=== PATIENT | male | born 1970 | race Caucasian/White ===

== ENCOUNTER 2016-11-05 10:51 | Day surgery (SDC) | payer BC ==
--- NOTE | 2016-11-03 17:00 | HP ---
PROCEDURE DATE: 11/05/16 HISTORY OF PRESENT ILLNESS: The patient is a 46 y/o who had some swelling and pain intermittently with internal hemorrhoid as well as itching all the time and occasional rectal bleeding, but not every day and not every bowel movement. Had a colonoscopy a few years ago with no polyps. PAST MEDICAL HISTORY: Has had history of some chronic obstructive pulmonary disease and asthma. CURRENT MEDICATIONS: None on a regular basis. ALLERGIES: NKDA. PAST SURGICAL HISTORY: Had rhinoplasty. Had right wrist tendonitis surgery in the past. FAMILY HISTORY: Cancer and hypertension. Negative for colon cancer though. SOCIAL HISTORY: 1 pack per day smoker. Denies alcohol abuse. REVIEW OF SYSTEMS: 12 systems reviewed per admission assessment. No chest pain or palpitations. Other systems negative or noncontributory other than above and per admission assessment. PHYSICAL EXAMINATION: GENERAL: No acute distress. HEENT: Sclerae nonicteric. NECK: No JVD. CHEST: Equal excursion. Nonlabored breathing. CVS: Regular rate and rhythm. ABDOMEN: Soft, nontender. No peritoneal signs. EXTREMITIES: No significant edema. NEURO: Alert, moving extremities symmetrically. No gross motor deficits noted. IMPRESSION: HISTORY OF RECTAL BLEEDING WELL SOME INTERNAL/EXTERNAL HEMORRHOID ISSUES. FELT HE WOULD BENEFIT FROM COLONOSCOPY FOR FURTHER EVALUATION, POSSIBLE INTERNAL HEMORRHOID BANDING PENDING OPERATIVE FINDINGS. Shown the risk sheet. Explained the procedure in detail. Risks and benefits explained in detail, but not limited to, bleeding; infection; small risk of bowel injury or perforation possibly requiring open procedure; small risk of missed or nondiagnosis or incomplete exam possibly requiring barium enema or other studies or procedures; general risk of anesthesia or sedation regarding if his internal hemorrhoids are prominent enough to warrant banding, general risk of bleeding or infection; remote risk of deeper infection possibly requiring major operative procedure; general risks of aches or cramping; risk of progression of the hemorrhoid disease with or without banding that may require other intervention in the future. He also understands that any external component does not qualify for banding and that should he have problems with external components may need other therapy down the road or excisional therapy down the road at a different setting if it failed to improve. Otherwise, he will continue high fiber diet to titrate soft, bulky bowel movements and proceed with colonoscopy, possible internal hemorrhoid banding as an outpatient under MAC anesthesia.
[~2016-11-05 10:51] MED LIST: Lactated Ringers 1,000 ML IV SCH; Versed 2 MG/2 ML Injection IV ONE
[2016-11-05] MEDS ORDERED: ANUSOL-HC 2.5% CREAM 30 GM ONE (13:10)
[2016-11-05] MEDS ORDERED: DIPRIVAN 200 MG/20 ML IV ONE (13:40)
[2016-11-05] MEDS ORDERED: SUBLIMAZE 100 MCG/2 ML ONE (14:04)
[2016-11-05 15:38] VITALS: O2SAT 98
[2016-11-05 15:59] VITALS: BP 112/68; PULSE 56
--- NOTE | 2016-11-06 11:02 | OP ---
SURGERY DATE: 11/05/16 SURGERY TIME: 1315 PREOPERATIVE DIAGNOSIS: 1. HISTORY OF RECTAL BLEEDING. 2. HISTORY OF INTERNAL/EXTERNAL HEMORRHOIDS. POSTOPERATIVE DIAGNOSIS: 1. GRADE II/GRADE III INTERNAL/EXTERNAL HEMORRHOIDS. 2. POOR BOWEL PREP LIMITING EXAM. 3. COLITIS. 4. DIVERTICULOSIS. 5. SMALL SIGMOID COLON POLYP. PROCEDURE: 1. Colonoscopy to terminal ileum. 2. Retrograde ileoscopy. 3. Random biopsy ileum to evaluate for microscopic ileitis. 4. Random cold colon biopsy to evaluate for microscopic colitis. 5. Hot biopsy small sigmoid colon polypectomy. 6. Internal hemorrhoid banding X 4 columns. SURGEON: Dr. Jorge Boone. ANESTHESIA: MAC. ESTIMATED BLOOD LOSS: Minimal. INDICATIONS: As noted above. Risks and benefits explained in detail, but not limited to. Consent was obtained. DESCRIPTION OF PROCEDURE AND FINDINGS: The patient was taken to the endoscopy room. Denied any further questions. MAC anesthesia was introduced. After official time-out, no disagreement in planned procedure. Digital rectal exam revealed some internal/external hemorrhoids grade II/III. There were no palpable masses other than internal/external hemorrhoids. Video colonoscope inserted up the poorly prepped colon, slowly, carefully up through the sigmoid, descending, and transverse colon to the cecum. Appendiceal orifice and valve well visualized. A retrograde ileoscopy was able to be performed. There was no gross sign of pj Crohn's disease, but given his colitis throughout the colon with a few ulcers, cold biopsy was taken in the terminal ileum to evaluate for microscopic ileitis or inflammatory bowel disease. Good hemostasis noted. The scope was slowly, carefully withdrawn. Some random cold biopsies were taken throughout the colon to evaluate for the colitis. There was a small polyp in the sigmoid colon that was removed with hot biopsy forceps and brief bursts of cautery. Otherwise, he had some internal/external hemorrhoids. Had some mild diverticulosis. There were no signs of any large polyps, masses, or obstructing lesions. On retroflex in the rectum, he did have some internal/external hemorrhoids. [place] he warranted hemorrhoid banding. Scope was withdrawn. Still remained under MAC anesthesia. The half-costello retractors carefully inserted. First, starting with the left lateral internal hemorrhoid trying to grasp the top edge hopefully acquiring the feeding arterial, suction shop clerk applied. Good tuft of tissue in the band noted. At this point, the lubricated retractor was removed and reinserted with visualization of the right posterior aspect. There appeared to be more of a right posterior and a right lateral in this position. These were both quite prominent internal hemorrhoids. Therefore, it was felt they both would benefit from bands. Grasped from the top edge hopefully acquiring the feeding arterial. The suction shop clerk was applied in each of these locations. The half-costello retractor was then carefully removed and then reinserted in the right anterior position. There was a 4th column of prominent internal hemorrhoid. It was felt this warranted banding hopefully acquiring the feeding arterial. Suction shop clerk was carefully applied at the top edge of the hemorrhoid. Good tuft of tissue noted. Adequate hemostasis was noted. The patient tolerated the procedure well. There were no immediate complications. Findings discussed with the family out in the waiting area.
== END 2016-11-05 15:25 | disposition home or self-care (01) ==
LOC: SDC 10:51
PROVIDERS: ATTEND Surgery
PROC: 0DBB8ZX Excision of Ileum, Via Natural or Artificial Opening Endoscopic, Diagnostic (ICD-10-PCS; principal; 2016-11-05)
PROC: 0DBN8ZX Excision of Sigmoid Colon, Via Natural or Artificial Opening Endoscopic, Diagnostic (ICD-10-PCS; 2016-11-05)
PROC: 06LY4CC Occlusion of Hemorrhoidal Plexus with Extraluminal Device, Percutaneous Endoscopic Approach (ICD-10-PCS; 2016-11-05)
DX: K64.8 Other hemorrhoids (principal); K64.4 Residual hemorrhoidal skin tags; K52.9 Noninfective gastroenteritis and colitis, unspecified; D12.5 Benign neoplasm of sigmoid colon; K62.5 Hemorrhage of anus and rectum; K57.90 Diverticulosis of intestine, part unspecified, without perforation or abscess without bleeding; J44.9 Chronic obstructive pulmonary disease, unspecified; Z72.0 Tobacco use
CPT/HCPCS: 00810; 36415; 45398; 81479; 82397; 83520; 86140; 88305; 88346; 88350; J2250; J2704; J3010; A9270-GY

== ENCOUNTER 2018-06-12 19:52 | Emergency (ER) | payer BC ==
--- NOTE | 2018-06-12 20:21 | ERPHSYRPT ---
- History of Present Illness Time Seen by Provider: 06/12/18 20:21 Source: patient Exam Limitations: no limitations Physician History: 47 y/o white male presents with h/o cough for 2 weeks. pt seen at an urgent care clinic. given a rx for steroids. sx improved but recurred. pt then placed on amoxicillin for sinus infection. he has another 2 to 3 days of this. pts cough has persisted. no fevers. denies cp and denies soa. Timing/Duration: week(s) (2) Cough Quality/Degree: moderate Possible Cause: occasional episodes Modifying Factors: Improves With: coughing, deep breath Associated Symptoms: cough, sinus infection, No fever, No chills, No chest pain/ soreness, No dizziness, No earache, No headache, No muscle aches, No nasal congestion, No shortness of breath, No sore throat Allergies/Adverse Reactions: No Known Drug Allergies Allergy (Unverified 01/20/13 12:39) Hx Tetanus, Diphtheria Vaccination/Date Given: Yes Hx Influenza Vaccination/Date Given: No Hx Pneumococcal Vaccination/Date Given: No - Review of Systems Constitutional: No Symptoms Eyes: No Symptoms Ears, Nose, & Throat: No Symptoms Respiratory: Cough, No Dyspnea Cardiac: No Symptoms, No Chest Pain, No Palpitations, No Syncope Abdominal/Gastrointestinal: No Symptoms, No Abdominal Pain, No Nausea, No Vomiting, No Diarrhea Genitourinary Symptoms: No Symptoms, No Dysuria, No Frequency, No Hematuria Musculoskeletal: No Symptoms Skin: No Symptoms Neurological: No Symptoms Psychological: No Symptoms Endocrine: No Symptoms Hematologic/Lymphatic: No Symptoms Immunological/Allergic: No Symptoms All Other Systems: Reviewed and Negative - Past Medical History Pertinent Past Medical History: Yes Neurological History: No Pertinent History ENT History: No Pertinent History Cardiac History: No Pertinent History Respiratory History: No Pertinent History Endocrine Medical History: No Pertinent History Musculoskeletal History: Other GI Medical History: GI Bleed History: No Pertinent History Psycho-Social History: No Pertinent History Male Reproductive Disorders: No Pertinent History Other Medical History: aramis tendonitis in wrists,narcolepsy, and sleep apnea - Past Surgical History Past Surgical History: Yes Neuro Surgical History: No Pertinent History Cardiac: No Pertinent History Respiratory: No Pertinent History Gastrointestinal: No Pertinent History Genitourinary: No Pertinent History Musculoskeletal: No Pertinent History Male Surgical History: No Pertinent History Other Surgical History: TENDONITIS SURGERY RHINOPLASTY,EYE SURGERY - Social History Smoking Status: Current every day smoker How long have you smoked: age 19 Exposure to second hand smoke: Yes Drug Use: none Patient Lives Alone: No - Nursing Vital Signs Nursing Vital Signs: Initial Vital Signs Temperature 97.8 F 06/12/18 20:18 Pulse Rate 62 06/12/18 20:18 Respiratory Rate 16 06/12/18 20:18 Blood Pressure 118/84 06/12/18 20:18 O2 Sat by Pulse Oximetry 98 06/12/18 20:18 Pain Scale Pain Intensity 0 - Physical Exam General Appearance: no apparent distress, alert Eye Exam: PERRL/EOMI Ears, Nose, Throat Exam: normal ENT inspection, moist mucous membranes Neck Exam: normal inspection, non-tender, supple, full range of motion Respiratory Exam: normal breath sounds, lungs clear, airway intact, No chest tenderness, No respiratory distress, No accessory muscle use, No rhonchi, No wheezing, No stridor Cardiovascular Exam: regular rate/rhythm, normal heart sounds, normal peripheral pulses Gastrointestinal/Abdomen Exam: soft, normal bowel sounds, No tenderness, No mass , No guarding Rectal Exam: not done Back Exam: normal inspection, normal range of motion, vertebral tenderness, No CVA tenderness Extremity Exam: normal inspection, normal range of motion, pelvis stable Neurologic Exam: alert, oriented x 3, cooperative, advice line rn II-XII nml as tested Skin Exam: normal color, warm, dry Lymphatic Exam: No adenopathy SpO2 Interpretation: normal SpO2: 98 O2 Delivery: Room Air - Course Nursing assessment & vital signs reviewed: Yes Ordered Tests: Medication Summary Discontinued Medications Generic Name Dose Route Start Last Admin Trade Name Rocael PRN Reason Stop Dose Admin Hydrocodone Bitart/Acetaminophen 15 ml 06/12/18 20:43 Hydrocodone-Acetamin 2.5-108/5 Ml Solution PO 06/12/18 20:44 STAT STA Ceftriaxone Sodium 1,000 mg 06/12/18 20:42 Rocephin 1000 Mg Inj IM 06/12/18 20:43 STAT ONE Methylprednisolone Sodium Succinate 125 mg 06/12/18 20:42 Solu-Medrol 125 Mg IM 06/12/18 20:43 STAT ONE - Progress Progress: improved, re-examined Air Movement: good Blood Culture(s) Obtained: No Antibiotics given: Yes Counseled pt/family regarding: diagnosis, need for follow-up - Departure Time of Disposition: 20:40 Departure Disposition: Home Clinical Impression: Bronchitis Condition: Stable Critical Care Time: No Additional Instructions: stop smoking. continue your amoxicillin as prescribed. follow up with primary doctor for persistent symptoms. Prescriptions: Albuterol 8 gm Mdi Hfa [Ventolin Hfa MDI] 8 gm IH Q4H #1 [email or web address] Hydrocodone Bit/Acetaminophen [Hydrocodone-Acetaminophen Soln] 10 ml PO Q6H # 120 ml Prednisone 10 mg [Deltasone 10 mg] 10 mg PO TID #12 tablet
[2018-06-12] MEDS ORDERED: Rocephin 1000 MG INJ IM ONE (20:42)
[2018-06-12] MEDS ORDERED: solu-MEDROL 125 MG IM ONE (20:42)
[2018-06-12] MEDS ORDERED: HYDROCODONE-ACETAMIN 2.5-108/5 ML SOLUTION PO STA (20:43)
[2018-06-12] MEDS ORDERED: HYDROCODONE-ACETAMIN 2.5-108/5 ML SOLUTION ONE (20:56)
[2018-06-12] MEDS ORDERED: solu-MEDROL 125 MG ONE (20:56)
[2018-06-12] MEDS ORDERED: Rocephin 1000 MG INJ ONE (20:56)
[2018-06-12 21:54] VITALS: BP 122/82; PULSE 53; O2SAT 96
== END 2018-06-12 21:58 | disposition home or self-care (01) ==
LOC: ED 19:52
DX: J40 Bronchitis, not specified as acute or chronic (principal); G47.30 Sleep apnea, unspecified
CPT/HCPCS: 96372; 99284; J0696; J2930; A9270-GY

== ENCOUNTER 2018-06-15 20:55 | Emergency (ER) | payer BC ==
[2018-06-15] MEDS ORDERED: DUONEB 0.5-3 MG/3 ml Neb IH ONE ×2 (22:48→23:00)
[2018-06-15] MEDS ORDERED: Sodium Chloride 0.9% 1000 ML 1,000 ML IV STA (22:48)
[2018-06-15 23:31] LABS: BASOPHIL % 0.1 % (0.0-0.4); Basophil (Absolute #) 0.01 (0-0.4); Eosinophil % 0.1 % (0.00-5.0); Eosinophil (Absolute #) 0.01 (0-0.5); Granulocyte Absolute (ANC) 13.48 (1.4-6.9); Granulocytes % 85.7 % (36.0-66.0); Hematocrit 42.6 % (42-50); Hemoglobin 14.7 gm/dl (12.5-18.0); Lymphocytes % 10.2 % (24.0-44.0); Mean Cell Volume 92.2 fl (78-100); Mean Corpuscular Hemoglobin 31.8 pg (26-32); Mean Corpuscular Hgb Concent. 34.5 g/dl (32-36); Mean Platelet Volume 9.1 fl (6-9.5); Monocyte (Absolute #) 0.62 (0.0-1.3); Monocytes % 3.9 % (0.0-12.0); Platelet Count 230 K/mm3 (150-450); Red Blood Count 4.62 M/mm3 (4.1-5.6); Red Cell Distribution Width 12.6 % (11.5-14.0); White Blood Count 15.7 K/mm3 (4.0-10.5)
[2018-06-15] MEDS ORDERED: Sodium Chloride 0.9% 1000 ML 1,000 ML ONE (23:31)
[2018-06-15 23:48] LABS: Group A Strep NEGATIVE (NEGATIVE); INFLUENZA A NEGATIVE (NEGATIVE); INFLUENZA B NEGATIVE (NEGATIVE); RESPIRATORY SYNCTIAL VIRUS NEGATIVE (Negative)
[2018-06-15 23:53] LABS: ALKALINE PHOSPHATASE 99 U/L (38-126); ANION GAP 15.1 MEQ/L (5-15); BLOOD UREA NITROGEN 20 mg/dL (9-20); CHLORIDE 103 mmol/L (98-107); Calcium 9.9 mg/dL (8.4-10.2); Carbon Dioxide 25 mmol/L (22-30); Creatinine 1 0.95 mg/dL (0.66-1.25); Glucose 126 mg/dL (74-106); Potassium 4.2 mmol/L (3.5-5.1); SGOT/AST 27 U/L (17-59); SGPT/ALT 23 U/L (0-50); SODIUM 139 mmol/L (137-145); Total Protein 8.5 g/dL (6.3-8.2)
[2018-06-16 01:08] VITALS: BP 117/68; PULSE 79; O2SAT 96
[2018-06-16] MEDS ORDERED: Protonix 40MG Tablet PO ONE (01:38)
--- NOTE | 2018-06-16 01:46 | ERPHSYRPT ---
- History of Present Illness Source: patient Exam Limitations: no limitations Patient Subjective Stated Complaint: steroids and mucinex by mel[employer]- a few weeks ago for cough. then, 06/06/18 pt states he started on ATB at home for a sinus infection- patient states that he was in here a few days ago (06/12/18) for a cough and was dx with bronchitis he was given , inhaler, cough syrup w hydrocodone, ATB shot, steroid shot and is on steroids at home, states that he is not feeling any better. states he began having dizziness and hot flashes starting this morning. states the phlegm has increased (clear phlegm) and his chest is tighter. Triage Nursing Assessment: pt is a&o, pink warm and dry, sitting up in bed, cough noted on occasion-no phlegm seen at this time. lungs clear, pt on RA Physician History: Pt presented to the ED with complains of cough that did not resolve with ABX, and therapy in the ED. Pt denies F/C/S. He still has dry cough, but no SOB. No chest pain or palpitations. No N/V/D or abdominal pain. Timing/Duration: week(s) Cough Quality/Degree: dry cough Associated Symptoms: denies symptoms Allergies/Adverse Reactions: No Known Drug Allergies Allergy (Verified 06/12/18 21:07) Home Medications: Amoxicillin/Potassium Clav [Amox-Clav 875-125 mg Tablet] 1 each PO BID 06/12/18 [History] Hx Tetanus, Diphtheria Vaccination/Date Given: Yes Hx Influenza Vaccination/Date Given: No Hx Pneumococcal Vaccination/Date Given: No - Review of Systems Constitutional: No Fever, No Chills Eyes: No Symptoms Ears, Nose, & Throat: No Symptoms Respiratory: Cough Cardiac: No Chest Pain, No Edema, No Syncope Abdominal/Gastrointestinal: No Abdominal Pain, No Nausea, No Vomiting, No Diarrhea Musculoskeletal: No Back Pain, No Neck Pain Neurological: No Dizziness, No Focal Weakness, No Sensory Changes - Past Medical History Pertinent Past Medical History: Yes Neurological History: No Pertinent History ENT History: Other Cardiac History: No Pertinent History Respiratory History: No Pertinent History Endocrine Medical History: No Pertinent History Musculoskeletal History: Other GI Medical History: GI Bleed History: No Pertinent History Psycho-Social History: No Pertinent History Male Reproductive Disorders: No Pertinent History Other Medical History: aramis tendonitis in wrists,narcolepsy, and sleep apnea, Rhinoplasty - Past Surgical History Past Surgical History: Yes Neuro Surgical History: No Pertinent History Cardiac: No Pertinent History Respiratory: No Pertinent History Gastrointestinal: No Pertinent History Genitourinary: No Pertinent History Musculoskeletal: No Pertinent History Male Surgical History: No Pertinent History Other Surgical History: TENDONITIS SURGERY RHINOPLASTY,EYE SURGERY - Social History Smoking Status: Former smoker How long have you smoked: 1 year ago Exposure to second hand smoke: No Drug Use: none Patient Lives Alone: No - Nursing Vital Signs Nursing Vital Signs: Initial Vital Signs Temperature 98.5 F 06/15/18 21:14 Pulse Rate 95 H 06/15/18 21:14 Respiratory Rate 20 06/15/18 21:14 Blood Pressure 135/85 06/15/18 21:14 O2 Sat by Pulse Oximetry 96 06/15/18 21:14 Pain Scale Pain Intensity 0 - Physical Exam General Appearance: no apparent distress, alert Eye Exam: PERRL/EOMI, eyes nml inspection Ears, Nose, Throat Exam: normal ENT inspection, TMs normal, pharynx normal, moist mucous membranes Neck Exam: normal inspection, non-tender, supple, full range of motion Respiratory Exam: normal breath sounds, lungs clear, No respiratory distress Cardiovascular Exam: regular rate/rhythm, normal heart sounds Gastrointestinal/Abdomen Exam: soft, No tenderness Extremity Exam: normal inspection, normal range of motion Neurologic Exam: alert, oriented x 3, cooperative, normal mood/affect, sensation nml, No motor deficits SpO2: 96 - Course Nursing assessment & vital signs reviewed: Yes - CT Exams Chest CT Interpretation: Tele-radiologist Report (Esophigitis) Ordered Tests: Active Orders 24 hr Category Date Time Status CHEST 2 VIEWS (PA AND LAT) Stat Exams 06/15/18 22:50 Taken CHEST WITH CONTRAST [CT] Stat Exams 06/16/18 00:06 Taken CBC W DIFF Stat Lab 06/15/18 23:28 Completed CMP Stat Lab 06/15/18 23:28 Completed D-DIMER QUANTITATION Stat Lab 06/15/18 23:28 Completed Lactic Acid Stat Lab 06/15/18 23:26 Completed Peak Expiratory Flow Rate ONCE RT 06/15/18 23:07 Active Respiratory Therapy Assessment DAILY RT 06/15/18 23:07 Active Medication Summary Discontinued Medications Generic Name Dose Route Start Last Admin Trade Name Freq PRN Reason Stop Dose Admin Albuterol/Ipratropium 3 ml 06/15/18 22:48 06/15/18 23:04 Duoneb 0.5-3 Mg/3 Ml Neb IH 06/15/18 22:49 3 ml STAT ONE Administration Albuterol/Ipratropium Confirm 06/15/18 23:00 Duoneb 0.5-3 Mg/3 Ml Neb Administered 06/15/18 23:01 Dose 3 ml IH .STK-MED ONE Sodium Chloride 1,000 mls @ 999 mls/hr 06/15/18 22:48 06/15/18 23:32 Sodium Chloride 0.9% 1000 Ml IV 06/15/18 23:48 999 mls/hr .Q1H1M STA Administration Sodium Chloride Confirm 06/15/18 23:31 Sodium Chloride 0.9% 1000 Ml Administered 06/15/18 23:32 Dose 1,000 mls @ ud .ROUTE .STK-MED ONE Pantoprazole Sodium 40 mg 06/16/18 01:38 Protonix 40mg Tablet PO 06/16/18 01:39 STAT ONE Lab/Rad Data: Laboratory Result Diagrams 06/15/18 23:28 06/15/18 23:28 Laboratory Results 06/15/18 06/15/18 06/15/18 Range/Units 23:28 23:28 23:28 WBC 15.7 H (4.0-10.5) K/mm3 RBC 4.62 (4.1-5.6) M/mm3 Hgb 14.7 (12.5-18.0) gm/dl Hct 42.6 (42-50) % MCV 92.2 (78-100) fl MCH 31.8 (26-32) pg MCHC 34.5 (32-36) g/dl RDW 12.6 (11.5-14.0) % Plt Count 230 (150-450) K/mm3 MPV 9.1 (6-9.5) fl Gran % 85.7 H (36.0-66.0) % Eos # (Auto) 0.01 (0-0.5) Absolute Lymphs (auto) 1.60 (1.0-4.6) Absolute Monos (auto) 0.62 (0.0-1.3) Lymphocytes % 10.2 L (24.0-44.0) % Monocytes % 3.9 (0.0-12.0) % Eosinophils % 0.1 (0.00-5.0) % Basophils % 0.1 (0.0-0.4) % Absolute Granulocytes 13.48 H (1.4-6.9) Basophils # 0.01 (0-0.4) D-Dimer 522 H* (215-500) ng/mL Sodium 139 (137-145) mmol/L Potassium 4.2 (3.5-5.1) mmol/L Chloride 103 (98-107) mmol/L Carbon Dioxide 25 (22-30) mmol/L Anion Gap 15.1 H (5-15) MEQ/L BUN 20 (9-20) mg/dL Creatinine 0.95 (0.66-1.25) mg/dL Estimated GFR > 60.0 ML/MIN Glucose 126 H (74-106) mg/dL Lactic Acid (0.4-2.0) Calcium 9.9 (8.4-10.2) mg/dL Total Bilirubin 0.60 (0.2-1.3) mg/dL AST 27 (17-59) U/L ALT 23 (0-50) U/L Alkaline Phosphatase 99 (38-126) U/L Serum Total Protein 8.5 H (6.3-8.2) g/dL Albumin 5.0 (3.5-5.0) g/dL Influenza Type A Ag (NEGATIVE) Influenza Type B Ag (NEGATIVE) RSV (PCR) (Negative) Group A Strep Antibody (NEGATIVE) 06/15/18 06/15/18 Range/Units 23:26 23:05 WBC (4.0-10.5) K/mm3 RBC (4.1-5.6) M/mm3 Hgb (12.5-18.0) gm/dl Hct (42-50) % MCV (78-100) fl MCH (26-32) pg MCHC (32-36) g/dl RDW (11.5-14.0) % Plt Count (150-450) K/mm3 MPV (6-9.5) fl Gran % (36.0-66.0) % Eos # (Auto) (0-0.5) Absolute Lymphs (auto) (1.0-4.6) Absolute Monos (auto) (0.0-1.3) Lymphocytes % (24.0-44.0) % Monocytes % (0.0-12.0) % Eosinophils % (0.00-5.0) % Basophils % (0.0-0.4) % Absolute Granulocytes (1.4-6.9) Basophils # (0-0.4) D-Dimer (215-500) ng/mL Sodium (137-145) mmol/L Potassium (3.5-5.1) mmol/L Chloride (98-107) mmol/L Carbon Dioxide (22-30) mmol/L Anion Gap (5-15) MEQ/L BUN (9-20) mg/dL Creatinine (0.66-1.25) mg/dL Estimated GFR ML/MIN Glucose (74-106) mg/dL Lactic Acid 1.7 (0.4-2.0) Calcium (8.4-10.2) mg/dL Total Bilirubin (0.2-1.3) mg/dL AST (17-59) U/L ALT (0-50) U/L Alkaline Phosphatase (38-126) U/L Serum Total Protein (6.3-8.2) g/dL Albumin (3.5-5.0) g/dL Influenza Type A Ag NEGATIVE (NEGATIVE) Influenza Type B Ag NEGATIVE (NEGATIVE) RSV (PCR) NEGATIVE (Negative) Group A Strep Antibody NEGATIVE (NEGATIVE) - Progress Progress: unchanged Air Movement: fair Progress Note: 06/16/18 01:45 Pt was treated with Duo neb. protonix 40mg PO was give in the ED. Will prescribe Protonix 40mg PO daily for a month, and will f/u with his PCP. Blood Culture(s) Obtained: No Antibiotics given: No Will see patient in: office Counseled pt/family regarding: need for follow-up - Departure Time of Disposition: 01:46 Departure Disposition: Home Clinical Impression: Esophagitis Condition: Stable Critical Care Time: No Referrals: DOCTOR,NO FAMILY [Primary Care Provider] - Additional Instructions: Take Protonix as ordered. F/U with PCP. Prescriptions: PANTOPRAZOLE 40 mg Tablet [Protonix 40MG Tablet] 40 mg PO DAILY 30 Days # 30 tab
[2018-06-16] MEDS ORDERED: Protonix 40MG Tablet ONE (01:59)
--- NOTE | 2018-06-16 08:51 | XRAY ---
Indication: Cough 3 weeks. Short of breath. Elevated d-dimer. Multiple contiguous axial images obtained through the chest using 80 cc Isovue 370 contrast and PE protocol. Comparison: None There is satisfactory opacification of the pulmonary arteries to include the lobar and segmental branches. No filling defect or pulmonary embolus. Heart is not enlarged. Aorta is normal in course and caliber. No pathologic mediastinal/hilar lymphadenopathy. Examination of the lung parenchyma demonstrates minimal bibasilar fibrosis/scarring and tiny right lung calcified granulomas. No suspicious pulmonary mass, infiltrate, or effusion. Bony thorax intact with minimal degenerative changes throughout the spine. Limited upper abdomen demonstrates at least 2 subcentimeter hepatic cysts. Impression: 1. Negative pulmonary embolus. No acute cardiopulmonary abnormalities. 2. Incidental hepatic cysts and evidence for old granulomatous disease. 3. Remaining CT chest with contrast exam is negative. Comment: Preliminary interpretation was made by [facility]. No critical discrepancy. CT DI 21.67
--- NOTE | 2018-06-16 08:51 | XRAY ---
Indication: Cough 3 weeks. Comparison: February 08, 2015. PA/lateral chest remains clear. Heart and mediastinal structures within normal limits. Bony thorax intact with minimal degenerative changes. Impression: Stable nonacute chest.
== END 2018-06-16 02:05 | disposition home or self-care (01) ==
LOC: ED 20:55
DX: K20.9 Esophagitis, unspecified (principal)
CPT/HCPCS: 36415; 71046; 71260; 80053; 83605; 85025; 85379; 87631; 87651; 94150; 94640; 99284; A9270-GY

== ENCOUNTER 2024-06-17 13:31 | Day surgery (SDC) | payer BC ==
[2013-01-20 14:08] VITALS: BP 112/74
[2024-06-17] MEDS ORDERED: methylPREDNISolone acetate IM ONE (13:32)
[2024-06-17] MEDS ORDERED: BUPIVACAINE 0.5% VIAL IJ ONE (13:32)
[2024-06-17] MEDS ORDERED: propofoL IV ONE (14:58)
--- NOTE | 2024-06-17 16:36 | XRAY ---
Indication: Right hip injection. Intraoperative fluoroscopy provided for 7 seconds. Single digital spot images submitted for interpretation demonstrates needle tip projecting lateral to right femur neck. Small amount of contrast injected for needle tip placement. Correlate with intraoperative findings/report.
--- NOTE | 2024-06-17 16:38 | XRAY ---
7 seconds of fluoroscopy was used in surgery for a right intra-articular hip injection.
== END 2024-06-17 15:25 | disposition home or self-care (01) ==
LOC: SDC-PAIN 13:31
PROVIDERS: ATTEND Psychiatry & Neurology Pain Medicine
DX: M16.11 Unilateral primary osteoarthritis, right hip (principal)
CPT/HCPCS: 20610; 73501; 77002; J1010; J2704; Q9966

== ENCOUNTER 2024-08-12 14:35 | Day surgery (SDC) | payer BC ==
[2013-01-20 14:08] VITALS: BP 112/74
[2024-08-12] MEDS ORDERED: BUPIVACAINE 0.5% VIAL IJ ONE (14:36)
[2024-08-12] MEDS ORDERED: Depo-Medrol 40 MG/ML IM ONE (14:36)
[2024-08-12] MEDS ORDERED: LIDOCAINE HCL 1% AMPUL 5 ML IJ ONE (14:36)
--- NOTE | 2024-08-12 20:21 | XRAY ---
Indication: Right SI joint injection. Intraoperative fluoroscopy provided for 12 seconds. Single digital spot image submitted for interpretation demonstrates posterior needle tips projecting over right SI joint. Small amount of contrast injected for needle tip placement. Correlate with intraoperative findings/report.
--- NOTE | 2024-08-12 21:52 | XRAY ---
12 seconds of fluoroscopy were used in surgery for a right sacroiliac joint injection.
== END 2024-08-12 17:45 | disposition home or self-care (01) ==
LOC: SDC-PAIN 14:35
PROVIDERS: ATTEND Psychiatry & Neurology Pain Medicine
DX: M46.1 Sacroiliitis, not elsewhere classified (principal)
CPT/HCPCS: 27096; 72170; Q9966